=== PATIENT | female | born 1970 | race Caucasian/White ===

== ENCOUNTER → 2021-05-11 | Outpatient (CLI) | payer OTHER ==
--- NOTE | 2021-05-17 09:18 | SLEEP ---
DATE OF STUDY: 05/11/2021 HOME SLEEP STUDY ATTENDING PHYSICIAN: Dr. Leni Christopher. The patient is a 50-year-old who weighs 284 pounds with a BMI of 43. The patient underwent home sleep study at [facility]. Total recording time was 531 minutes. During the night study, the patient had 2 obstructive apneas, 4 central apneas, 10 mixed apneas and 25 hypopneas. The patient had respiratory artifact on and off during the testing. Nocturnal oximetry study revealed an average oxygen saturation of 93% with a lowest of 87%. Mean heart rate 66 beats per minute. IMPRESSION: 1. Mild obstructive sleep apnea at an AHI of 5.4 per hour. The patient had respiratory artifacts on and off during the testing, which may have underestimated the severity of sleep apnea. 2. No significant nocturnal hypoxia. RECOMMENDATIONS: 1. If clinical suspicion for sleep apnea is still high, consider doing a full polysomnogram. 2. If the patient is clinically symptomatic or has comorbid conditions, then consider treatment of sleep apnea with either CPAP versus oral appliance. 3. Weight loss is strongly advised. 4. Avoid SOLE BLACKER depressants. 5. Cautioned regarding driving until symptoms of sleep apnea resolve with above recommendations. REID/AHMET DR: Marai C TID: [id number] CC: Dr. Leni Christopher
== END ==
LOC: RT 09:55
PROVIDERS: ATTEND Family Medicine
DX: G47.33 Obstructive sleep apnea (adult) (pediatric) (principal)
CPT/HCPCS: G0399

== ENCOUNTER → 2021-07-21 | Day surgery (SDC) | payer OTHER ==
[~2021-07-21] VITALS: Ht 172.7 cm; Wt 127.2 kg
[~2021-07-21] MED LIST: CETI10TA74 PO; IV RINGERS,LACTATED 1000ML 1,000 ML IV SCH; METF10007 PO; NAPR500T8 PO; OMEP40CA7 PO; PROPOFOL 10 MG/ML (20ML) VIAL. IV ONE
[2021-07-21 07:43] VITALS: BP 139/66
--- NOTE | 2021-07-21 09:03 | CONS ---
DATE OF CONSULTATION: 07/21/2021 REFERRING PHYSICIAN: Sierra Miller DO REASON FOR CONSULTATION: Colorectal screening. HISTORY OF PRESENT ILLNESS: A 50-year-old female with past medical history significant for diabetes, gastroesophageal reflux disease and osteoarthrosis, is seen for screening colon. There is no change in bowel habits, diarrhea, constipation. No melena and/or hematochezia. Her mother has had colon polyps. There is no family history of colon cancer. She is here for surveillance exam. PAST MEDICAL HISTORY: Diabetes, gastroesophageal reflux disease. ALLERGIES: GENTAMICIN. MEDICATIONS: Include Zyrtec, metformin, Naprosyn and omeprazole. FAMILY HISTORY AND SOCIAL HISTORY: Significant for colon polyps in her mother, hypertension in the father and grandfather. SOCIAL HISTORY: She is a current smoker and nondrinker. PAST SURGICAL HISTORY: Significant for weight loss surgery. REVIEW OF SYSTEMS: Per records. PHYSICAL EXAMINATION: GENERAL: Reveals a well-nourished, well-developed female. VITAL SIGNS: Temperature is 97.8, pulse 65, respirations 20. LUNGS: Clear. CARDIOVASCULAR: Reveals an S1, S2, without S3, S4 or appreciable murmur. ABDOMEN: Reveals a soft abdomen, normal bowel sounds, without appreciable hepatosplenomegaly. IMPRESSION AND PLAN: Colorectal screening is warranted at this time. Risks and benefits of procedure including risk of hemorrhage and perforation during operation were discussed. The patient is willing to proceed at this time. JESSICA DR: Ghada TID: [id number]
[2021-07-21 09:30] VITALS: BP 141/77
== END | disposition home or self-care (01) ==
LOC: SURG 07:21
PROVIDERS: ATTEND Internal Medicine Gastroenterology
DX: Z12.11 Encounter for screening for malignant neoplasm of colon (principal); K64.0 First degree hemorrhoids; K57.30 Diverticulosis of large intestine without perforation or abscess without bleeding; K63.89 Other specified diseases of intestine; K21.9 Gastro-esophageal reflux disease without esophagitis; E11.9 Type 2 diabetes mellitus without complications; J45.909 Unspecified asthma, uncomplicated; G47.30 Sleep apnea, unspecified; E66.9 Obesity, unspecified; F17.210 Nicotine dependence, cigarettes, uncomplicated; Z79.84 Long term (current) use of oral hypoglycemic drugs; Z79.899 Other long term (current) drug therapy; Z98.890 Other specified postprocedural states; Z88.8 Allergy status to other drugs, medicaments and biological substances; Z80.0 Family history of malignant neoplasm of digestive organs; Z82.49 Family history of ischemic heart disease and other diseases of the circulatory system
CPT/HCPCS: 45378; J2704

== ENCOUNTER → 2021-08-11 | Outpatient (CLI) | payer OTHER ==
[2021-07-21 09:30] VITALS: BP 141/77
[~2021-08-11] MED LIST changes: -IV RINGERS,LACTATED 1000ML 1,000 ML IV SCH; -PROPOFOL 10 MG/ML (20ML) VIAL. IV ONE
[2021-08-11 11:16] LABS: ALBUMIN 3.9 g/dL (3.4-5.0); ALBUMIN/GLOBULIN RATIO 1.2 (1.0-1.7); CALCIUM 9.2 mg/dL (8.5-10.1); CHOLESTEROL/HDL RATIO 2.6; CREATININE 0.7 mg/dL (0.6-1.0); GFR 88.2; POTASSIUM 4.7 mmol/L (3.5-5.1); TOTAL BILIRUBIN 0.8 mg/dL (0.2-1.0); TOTAL PROTEIN 7.1 g/dL (6.4-8.2)
== END ==
LOC: LAB 10:15
PROVIDERS: ATTEND Family Medicine
DX: E78.5 Hyperlipidemia, unspecified (principal)
CPT/HCPCS: 36415; 80053; 80061